=== PATIENT | female | born 1970 | race Caucasian/White ===

== ENCOUNTER → 2016-11-19 17:37 | Outpatient (CLI) | payer MEDICARE, MEDICAID | END | disposition home or self-care (01) | LOC: D.LABREF 17:37 | DX: Z51.81 Encounter for therapeutic drug level monitoring (principal); Z79.899 Other long term (current) drug therapy ==

== ENCOUNTER 2018-05-12 19:40 | Emergency (ER) | payer MEDICARE, MEDICAID ==
[~2018-05-12] VITALS: Ht 167.6 cm; Wt 65.9 kg
[2018-05-12 19:44] VITALS: Ht 167.6 cm; Wt 65.9 kg
[2018-05-12] MEDS ORDERED: GEODON40 MG (19:46)
[2018-05-12] MEDS ORDERED: OMEPRAZOLE20 M1 PO (19:46)
[2018-05-12] MEDS ORDERED: NEURONTIN 300300 MG (19:46)
[2018-05-12] MEDS ORDERED: VISTARIL50 MG (19:46)
[2018-05-12] MEDS ORDERED: PROZAC20 MG PO (19:46)
[2018-05-12] MEDS ORDERED: TRAZODONE HCL150 MG (19:47)
[2018-05-12 20:29] LABS: BASOPHILS 0.1 % (0-2); EOSINOPHILS 1.2 % (0-7); HEMATOCRIT 42.1 % (36.0-48.0); HEMOGLOBIN 14.7 g/dL (12-16); IMMATURE GRANULOCYTES 0.1 % (0-5); LYMPHOCYTES 50.6 % (15-50); MCH 32.2 pg (26.0-34.0); MCHC 34.9 g/dL (31.0-37.0); MCV 92.3 fL (80.0-100.0); MEAN PLATELET VOLUME 8.9 fL (7.4-10.4); MONOCYTES 5.3 % (2-11); NEUTROPHILS 42.7 % (40-80); PLATELET COUNT 253 10x3/uL (130-400); RBC 4.56 10x6/uL (4.00-5.40); RDW 12.7 % (11.5-14.5); WBC 8.5 10x3/uL (4.8-10.8)
[2018-05-12 20:41] LABS: ALBUMIN 3.2 g/dL (3.4-5.0); ALKALINE PHOSPHATASE 106 U/L (46-116); ALT (SGPT) 21 U/L (10-68); AMYLASE - SERUM 45 U/L (25-115); BILIRUBIN - TOTAL 0.17 mg/dL (0.2-1.3); CALC OSMOLALITY 281 mosm/kg (275-300); CALCIUM 8.3 mg/dL (8.5-10.1); CARBON DIOXIDE 30.4 mmol/L (21.0-32.0); CHLORIDE - SERUM 107 mmol/L (98-107); CREATININE - SERUM 0.7 mg/dL (0.6-1.3); GLUCOSE 97 mg/dL (74-106); LIPASE 109 U/L (73-393); POTASSIUM - SERUM 3.9 mmol/L (3.5-5.1); PROTEIN - SERUM 6.5 g/dL (6.4-8.2); SODIUM 142 mmol/L (136-145); UREA NITROGEN 9 mg/dL (7-18); eGFR NON AFRICAN AMERICAN > 90 mL/min (90-120)
[2018-05-12 21:28] LABS: APPEARANCE CLEAR (CLEAR); BILIRUBIN NEGATIVE (NEGATIVE); COLOR YELLOW (YELLOW); GLUCOSE NEGATIVE (NEGATIVE); KETONE NEGATIVE (NEGATIVE); NITRITE NEGATIVE (NEGATIVE); PROTEIN NEGATIVE (NEGATIVE); UROBILINOGEN NORMAL (NORMAL)
[2018-05-12 21:29] LABS: HCG URINE NEGATIVE (NEGATIVE)
[2018-05-12] MEDS ORDERED: LOMOTIL TABLET1 TAB PO (22:24)
[2018-05-12] MEDS ORDERED: ZOFRAN ODT4 MG/UDTAB PO (22:24)
[2018-05-12 22:40] VITALS: BP 112/78
== END 2018-05-12 22:41 | disposition home or self-care (01) ==
LOC: D.ER 19:40
PROVIDERS: Family Medicine
DX: A08.4 Viral intestinal infection, unspecified (principal); R19.7 Diarrhea, unspecified; R51 Headache; J44.9 Chronic obstructive pulmonary disease, unspecified; F17.200 Nicotine dependence, unspecified, uncomplicated

== ENCOUNTER 2020-01-17 08:16 | Emergency (ER) | payer MEDICARE, MEDICAID ==
[~2020-01-17] VITALS: Ht 167.6 cm; Wt 65.9 kg
[~2020-01-17 08:16] MED LIST: GEODON40 MG; LOMOTIL TABLET1 TAB PO; NEURONTIN 300300 MG; OMEPRAZOLE20 M1 PO; PROZAC20 MG PO; TRAZODONE HCL150 MG; VISTARIL50 MG; ZOFRAN ODT4 MG/UDTAB PO
[2020-01-17 08:23] VITALS: BP 134/63; Ht 167.6 cm; Wt 65.9 kg
[2020-01-17] MEDS ORDERED: ULTRAM50 MG PO (08:43)
[2020-01-17] MEDS ORDERED: PREDNISONE20 MG PO (08:43)
--- NOTE | 2020-01-17 09:06 | NUR ---
DR. BATES NOTIFIED AND REVIEWED PTS BEHAVIOR AND ASSESSMENT RESULTS. PT IS A LOW RISK PER DR. BATES. DR. BATES STATED TO GIVE RESOURCES TO PT AT TIME OF DISCHARGE. NO FURTHER ORDERS AT THIS TIME. RESOURCES REVIEWED WITH PT AND SHE VERBALIZED UNDERSTANDING.
== END 2020-01-17 09:10 | disposition home or self-care (01) ==
LOC: D.ER 08:16
DX: M25.572 Pain in left ankle and joints of left foot (principal); I50.9 Heart failure, unspecified; J45.909 Unspecified asthma, uncomplicated; K21.9 Gastro-esophageal reflux disease without esophagitis; Z72.0 Tobacco use

== ENCOUNTER 2020-01-17 11:12 | Emergency (ER) | payer MEDICARE, MEDICAID ==
[~2020-01-17] VITALS: Ht 167.6 cm; Wt 65.9 kg
[~2020-01-17 11:12] MED LIST changes: +PREDNISONE20 MG PO; +ULTRAM50 MG PO
[2020-01-17 11:18] VITALS: BP 133/80; Ht 167.6 cm; Wt 65.9 kg
[2020-01-17 11:50] LABS: CALC OSMOLALITY 285 mosm/kg (275-300); CALCIUM 8.2 mg/dL (8.5-10.1); CARBON DIOXIDE 27.7 mmol/L (21.0-32.0); CHLORIDE - SERUM 107 mmol/L (98-107); CREATININE - SERUM 0.8 mg/dL (0.6-1.3); GLUCOSE 106 mg/dL (74-106); POTASSIUM - SERUM 3.5 mmol/L (3.5-5.1); SODIUM 142 mmol/L (136-145); UREA NITROGEN 20 mg/dL (7-18); eGFR NON AFRICAN AMERICAN 81 mL/min (90-120)
[2020-01-17 11:54] LABS: ALBUMIN 2.5 g/dL (3.4-5.0); ALKALINE PHOSPHATASE 126 U/L (30-120); ALT (SGPT) 12 U/L (10-68); BILIRUBIN - TOTAL 0.42 mg/dL (0.2-1.3); MAGNESIUM - SERUM 2.1 mg/dL (1.8-2.4); PROTEIN - SERUM 6.8 g/dL (6.4-8.2)
[2020-01-17 11:55] LABS: BASOPHILS 0.1 % (0-2); EOSINOPHILS 1.1 % (0-7); HEMATOCRIT 40.2 % (36.0-48.0); IMMATURE GRANULOCYTES 0.1 % (0-5); MCH 32.7 pg (26.0-34.0); MCHC 32.3 g/dL (31.0-37.0); MCV 101.3 fL (80.0-100.0); MEAN PLATELET VOLUME 8.6 fL (7.4-10.4); MONOCYTES 3.1 % (2-11); NEUTROPHILS 85.6 % (40-80); RBC 3.97 10x6/uL (4.00-5.40); RDW 14.1 % (11.5-14.5); WBC 14.1 10x3/uL (4.8-10.8)
[2020-01-17 12:25] LABS: UDS - AMPHET NEGATIVE QUAL (NEGATIVE); UDS - BARB NEGATIVE QUAL (NEGATIVE); UDS - BENZO NEGATIVE QUAL (NEGATIVE); UDS - COCAINE POSITIVE QUAL (NEGATIVE); UDS - OPIATE NEGATIVE QUAL (NEGATIVE); UDS - PCP NEGATIVE QUAL (NEGATIVE); UDS - THC POSITIVE QUAL (NEGATIVE)
[2020-01-17 12:35] LABS: BACTERIA FEW /hpf (NEGATIVE); BILIRUBIN 3+ (NEGATIVE); EPITHELIAL CELLS 0-5 /hpf (0-5); GLUCOSE NEGATIVE (NEGATIVE); KETONE NEGATIVE (NEGATIVE); NITRITE NEGATIVE (NEGATIVE); RED CELLS - URINE OCC /hpf (0-5); SPECIFIC GRAVITY 1.025 (1.005-1.020); WHITE CELLS - URINE 0-5 /hpf (NEGATIVE)
[2020-01-17 12:36] LABS: HYALINE CAST OCC /lpf (NONE SEEN)
[2020-01-17 12:39] LABS: PLATELET COUNT 454 10x3/uL (130-400)
--- NOTE | 2020-01-17 13:06 | NUR ---
DR. BATES NOTIFIED AND SITTER ORDERED. SITTER IN LINE OF SIGHT. NOTIFIED CHARGE NURSE AND ATTENDING IN REGARDS TO ASSESSMENT FINDINGS. ED DOCTOR IN AGREEMENT WITH INPATIENT DECISION. RESOURCES GIVEN TO PT AND SAFETY PLAN INTIATED.
== END 2020-01-17 15:32 | disposition home or self-care (01) ==
LOC: D.ER 11:12
PROVIDERS: Emergency Medicine
DX: F32.9 Major depressive disorder, single episode, unspecified (principal); S82.892K Other fracture of left lower leg, subsequent encounter for closed fracture with nonunion; F19.10 Other psychoactive substance abuse, uncomplicated; I11.0 Hypertensive heart disease with heart failure; I50.9 Heart failure, unspecified; Z72.0 Tobacco use; R45.851 Suicidal ideations; R44.1 Visual hallucinations; R44.0 Auditory hallucinations

== ENCOUNTER 2020-03-11 10:50 | Emergency (ER) | payer MEDICARE, MEDICAID ==
[~2020-03-11] VITALS: Ht 167.6 cm; Wt 59.1 kg
[2020-03-11 10:56] VITALS: BP 173/87; Ht 167.6 cm; Wt 59.1 kg
[2020-03-11] MEDS ORDERED: ULTRAM50 MG PO (12:19)
[2020-03-11] MEDS ORDERED: VOLTAREN75 MG PO (12:19)
[2020-03-11 12:38] LABS: HEMATOCRIT 42.5 % (36.0-48.0); HEMOGLOBIN 14.1 g/dL (12-16); LYMPHOCYTES 36.7 % (15-50); MCH 31.9 pg (26.0-34.0); MCHC 33.2 g/dL (31.0-37.0); MCV 96.2 fL (80.0-100.0); MEAN PLATELET VOLUME 7.9 fL (7.4-10.4); NEUTROPHILS 54.4 % (40-80); PLATELET COUNT 403 10x3/uL (130-400); RBC 4.42 10x6/uL (4.00-5.40); RDW 15.4 % (11.5-14.5); WBC 9.2 10x3/uL (4.8-10.8)
== END 2020-03-11 14:37 | disposition home or self-care (01) ==
LOC: D.ER 10:50
PROVIDERS: Family Medicine
DX: M25.572 Pain in left ankle and joints of left foot (principal); M25.472 Effusion, left ankle; K21.9 Gastro-esophageal reflux disease without esophagitis